=== PATIENT | male | born 1950 | race Caucasian/White ===

== ENCOUNTER → 2023-11-04 10:04 | Outpatient (CLI) | payer OTHER, SELFPAY | PROVIDERS: Visit Provider Specialist | DX: N40.1 Benign prostatic hyperplasia with lower urinary tract symptoms (principal); N13.8 Other obstructive and reflux uropathy; N39.0 Urinary tract infection, site not specified; Z85.51 Personal history of malignant neoplasm of bladder | CPT/HCPCS: 51798; 81002; 87086 ==

== ENCOUNTER → 2023-12-09 11:07 | Outpatient (CLI) | payer OTHER, SELFPAY | PROVIDERS: PCP Family Medicine; Visit Provider Specialist | DX: N40.1 Benign prostatic hyperplasia with lower urinary tract symptoms (principal); N13.8 Other obstructive and reflux uropathy | CPT/HCPCS: 81002; 87077; 87086 ==

== ENCOUNTER → 2023-12-11 10:55 | Outpatient (CLI) | payer OTHER, SELFPAY | PROVIDERS: PCP Family Medicine; Visit Provider Specialist | DX: N40.1 Benign prostatic hyperplasia with lower urinary tract symptoms (principal); N13.8 Other obstructive and reflux uropathy; N39.0 Urinary tract infection, site not specified; Z85.51 Personal history of malignant neoplasm of bladder; Z87.440 Personal history of urinary (tract) infections | CPT/HCPCS: 52000; 87077; 87086; 87186; 96372; J1580 ==